=== PATIENT | male | born 1950 | race Caucasian/White ===

== ENCOUNTER → 2017-11-04 14:07 | Outpatient (CLI) | payer MEDICARE, SELFPAY ==
[2017-11-04 14:45] VITALS: PULSE 65; PULSE 70
== END ==
PROVIDERS: Family Provider Internal Medicine; PCP Internal Medicine Adolescent Medicine; Visit Provider Internal Medicine Adolescent Medicine
DX: R05 Cough (principal)
CPT/HCPCS: 94060; 94640; 94726; 94729

== ENCOUNTER → 2017-11-28 09:40 | Outpatient (CLI) | payer MEDICARE, SELFPAY ==
[2017-11-28 10:42] LABS: Basophils # 0.1 K/mm3 (0-0.2); Basophils % 1.2 % (0.1-2.0); Eosinophils # 0.1 K/mm3 (0.0-0.4); Hematocrit 47.2 % (42.0-52.0); Hemoglobin 15.1 g/dL (14.1-18.0); Lymphocytes # 2.3 K/mm3 (0.7-4.5); Lymphocytes % 33.3 K/mm3 (10-50); Mean Corpuscular Hemoglobin 32.4 pg (27.0-31.2); Mean Corpuscular Volume 101.4 fl (80-94); Mean Platelet Volume 7.3 fl (7.4-10.4); Monocytes # 0.3 K/mm3 (0.1-1.0); Monocytes % 4.9 % (1.7-9.3); Neutrophils # 4.2 K/mm3 (1.8-7.8); Neutrophils % 59.6 % (37.0-80.0); Platelet Count 283 K/mm3 (142-424); Red Blood Count 4.66 M/mm3 (4.60-6.20)
[2017-11-28 11:56] LABS: Alanine Aminotransferase 22 U/L (12-78); Albumin Level 3.8 gm/dL (3.4-5.0); Albumin/Globulin Ratio 1.2 (1.1-1.8); Alkaline Phosphatase 74 U/L (46-116); Anion Gap 12.6 mEq/L (5-15); Aspartate Amino Transferase 21 U/L (15-37); Bilirubin,Total 0.6 mg/dL (0.2-1.0); Blood Urea Nitrogen 15 mg/dL (7-18); Calcium 9.1 mg/dL (8.5-10.1); Carbon Dioxide 29 mmol/L (21.0-32.0); Chloride 102 mmol/L (98-107); Creatinine,Serum 1.14 mg/dL (0.70-1.30); Estimated Glomerular Filt Rate 64 ml/min (>60); GFR (African American) 77 ML/MIN (>60); Globulin 3.3 gm/dl (1.3-3.2); Glucose 93 mg/dL (74-106); Potassium 4.6 mmoL/L (3.5-5.1); Sodium 139 mmol/L (136-145); Total Protein,Serum 7.1 gm/dL (6.4-8.2)
[2017-11-29 15:19] LABS: Chol/HDL Ratio 4.1 (1-3.5); Cholesterol 226 mg/dL (140-200); HDL Cholesterol 55 mg/dL (27-67); LDL Cholesterol 157 mg/dL (0-130); Triglycerides 72 mg/dL (30-200); VLDL Cholesterol 14 mg/dL (0-40)
== END ==
PROVIDERS: PCP Internal Medicine Adolescent Medicine; Visit Provider Internal Medicine Adolescent Medicine
DX: Z00.00 Encounter for general adult medical examination without abnormal findings (principal); R06.02 Shortness of breath; J44.9 Chronic obstructive pulmonary disease, unspecified; R89.9 Unspecified abnormal finding in specimens from other organs, systems and tissues; C72.0 Malignant neoplasm of spinal cord; Z13.220 Encounter for screening for lipoid disorders; Z79.899 Other long term (current) drug therapy
CPT/HCPCS: 36415; 80053; 80061; 85025

== ENCOUNTER 2020-09-16 13:10 | Outpatient (CLI) | payer SELFPAY | END 2020-09-16 16:22 | disposition home or self-care (01) | PROVIDERS: Visit Provider Physician Assistant | DX: Z02.4 Encounter for examination for driving license (principal) ==

== ENCOUNTER 2022-01-21 14:25 | Emergency (ER) | payer MEDICARE, SELFPAY ==
--- NOTE | 2022-01-21 15:23 | XR_ITS ---
FINAL REPORT CLINICAL HISTORY: cough FINDINGS: 2 views of the chest were obtained . The heart is normal in size. The mediastinum is within normal limits. The lungs are hyperexpanded consistent with COPD. There is mild bronchial wall thickening worrisome for bronchitis. Mild right base opacities are seen which may represent atelectasis or pneumonia. There is no pneumothorax. Osseous structures are unremarkable. IMPRESSION: Mild bronchial wall thickening worrisome for bronchitis with right basilar atelectasis or pneumonia. Reviewed, Interpreted and Dictated by Skyler Perry III, MD Transcribed by Linda Damian Authenticated and [facility]
--- NOTE | 2022-01-21 15:33 | EXP.UTC ---
Discharge Plan Disposition Patient Disposition: Home, Self-Care Condition: Good Prescriptions Prescriptions: New azithromycin [Zithromax] 250 mg tablet 250 mg PO UD DOSE PK Qty: 6 0RF Rx Instructions: Take two (2) tablets today, then one (1) tablet days #2 thru #5 benzonatate [benzonatate] 100 mg capsule 100 mg PO TIDP PRN (Reason: Cough) Qty: 30 0RF methylprednisolone 4 mg Tablets,Dose Pack 4 mg PO DIRECTED Qty: 21 0RF No Action fluticasone propionate 120 SPR/BOT spray,suspension 2 spr intranasal DAILY Qty: 1 0RF Rx Instructions: each nostril Referrals Follow up/Referrals: Provider,Referral, MD [Primary Care Provider] - See instructions Activity Restrictions/Add. Instructions Additional Instructions/Restrictions: Drink plenty of fluids. Take tylenol or ibuprofen for pain or fever. Take the medications as directed. Follow up with your regular doctor. GO TO THE ER FOR ANY WORSENING SYMPTOMS Don't start the oral steroids until tomorrow, since you had the shot here today. Clinical Impressions Clinical Impression: COPD exacerbation Instructions Patient Instructions: DI for Chronic Obstructive Pulmonary Disease, Ceftriaxone Injection, Methylprednisolone Injection Discharge ED Provider: Marcos Bennett [facility] [place] General Stated complaint: cough,runny nose,chills Time Seen by Provider: 01/21/22 15:33 History of Present Illness Provider Complaint: He states that for the past 2 days he has had worsening chest and sinus congestion. He denies any fever/chills/body aches. His has similar symptoms at home. He has a history of COPD. Related Data Previous Rx's Medication Instructions Recorded fluticasone propionate 50 2 spr intranasal DAILY ##1 10/16/17 mcg/actuation nasal spray,suspension azithromycin 250 mg tablet 250 mg PO UD DOSE PK #6 tabs 01/21/22 (Zithromax) benzonatate 100 mg capsule 100 mg PO TIDP PRN Cough #30 caps 01/21/22 methylprednisolone 4 mg tablets in 4 mg PO DIRECTED #21 tabs 01/21/22 a dose pack Allergies Allergy/AdvReac Type Severity Reaction Status Date / Time No Known Allergies Allergy Verified 01/21/22 15:41 [facility] Disclaimer: The information contained in this section may have been updated after the patient was seen, as this information can be updated by other users. Social History Smoking Status: Current every day smoker tobacco type: cigarettes second hand exposure: Yes alcohol intake: never current occupational status: retired Travel in the last 8 weeks: None ROS Obtained: Yes All systems reviewed & no additional complaints except as documented Constitutional Constitutional: Reports as per HPI, Denies chills and Denies fever(s) Eyes Eyes: Denies eye discharge ENT Ears, Nose, Mouth, and Throat: Reports as per HPI Cardiovascular Cardiovascular: Denies chest pain Respiratory Respiratory: Denies chest congestion and Reports cough Gastrointestinal Gastrointestingal: Reports nausea; Denies abdominal pain, constipation, cramping, diarrhea or vomiting Musculoskeletal Musculoskeletal: Denies arthralgias Integumentary/Breasts Skin/Breast: Denies rash Neurologic Neurologic: Denies paresthesias Physical Exam General General appearance: alert and in no apparent distress Head Head exam: atraumatic, normocephalic and normal inspection Eye Eye exam: Present normal appearance, PERRL and EOMI ENT ENT exam: Present normal exam, normal oropharynx, mucous membranes moist, TM's normal bilaterally and normal external ear exam Neck Neck exam: Present normal inspection, full ROM and trachea midline; Absent meningismus or lymphadenopathy Chest Chest inspection: Present normal inspection and symmetric chest wall rise; Absent tenderness Respiratory Respiratory exam: Present normal lung sounds bilaterally; Absent respiratory distress Cardiovascular Cardiovascula
[2022-01-21 15:38] VITALS: BP 124/86; PULSE 92; RESP 16; TEMP 37; O2SAT 96; BMI 18.9
[2022-01-21 16:34] VITALS: BP 124/86; PULSE 92; RESP 16; TEMP 37
== END 2022-01-21 16:36 | disposition home or self-care (01) ==
PROVIDERS: Emergency Provider Nurse Practitioner Family
DX: J44.1 Chronic obstructive pulmonary disease with (acute) exacerbation (principal)
CPT/HCPCS: 71046; 96372; 99213; G0463; J0696

== ENCOUNTER 2022-06-10 13:28 | Emergency (ER) | payer MEDICARE, SELFPAY ==
[2022-06-10] VITALS (8 sets, daily range): BP systolic 115–149; BP diastolic 56–94; PULSE 69–94; RESP 18–20; TEMP 36.6–36.9; O2SAT 93–100; BMI 18.5
--- NOTE | 2022-06-10 13:41 | XR_ITS ---
FINAL REPORT CLINICAL HISTORY: soa FINDINGS: The heart size is normal. The mediastinum is within normal limits. The lungs are hyperinflated. There are mild chronic changes in both lungs. There is no pleural effusion. There is no pneumothorax. The bony thorax is intact. IMPRESSION: No acute cardiopulmonary process. Reviewed, Interpreted and Dictated by Santi Mayes MD Transcribed by Nam Phillips Authenticated and [facility]
--- NOTE | 2022-06-10 13:44 | HMH.EDGENADL ---
Discharge Plan Disposition Patient Disposition: Home, Self-Care Condition: Good Prescriptions Prescriptions: New prednisone 20 mg tablet 20 mg PO BID 7 Days Qty: 14 0RF doxycycline hyclate 100 mg capsule 100 mg PO BID 10 Days Qty: 20 0RF albuterol sulfate 90 mcg/actuation HFA aerosol inhaler 2 inh inhalation Q6H PRN (Reason: shortness of breath or wheezing) Qty: 8.5 0RF No Action fluticasone propionate 120 SPR/BOT spray,suspension 2 spr intranasal DAILY Qty: 1 0RF Rx Instructions: each nostril azithromycin [Zithromax] 250 mg tablet 250 mg PO UD DOSE PK Qty: 6 0RF Rx Instructions: Take two (2) tablets today, then one (1) tablet days #2 thru #5 benzonatate [benzonatate] 100 mg capsule 100 mg PO TIDP PRN (Reason: Cough) Qty: 30 0RF methylprednisolone 4 mg Tablets,Dose Pack 4 mg PO DIRECTED Qty: 21 0RF Referrals Follow up/Referrals: Provider,Referral, MD [Primary Care Provider] - See instructions Activity Restrictions/Add. Instructions Additional Instructions/Restrictions: Follow-up with a local primary care provider. Clinical Impressions Clinical Impression: COPD exacerbation, Bronchitis Discharge ED Provider: Narayan Arboleda General Adult HPI General Chief complaint: Upper Respiratory Infection Stated complaint: SOA Time Seen by Provider: 06/10/22 13:37 Mode of Arrival: Ambulatory Source of Information: Patient Limitations: No Limitations Description of Symptoms (Recalled from ER Triage Doc. by RN): pt to ed c/o sneezing, and shortness of air with exertion since . pt states he has a hx of copd. pt denies use of inhalers or o2 at home. History of Present Illness HPI narrative: Patient presents complaining of shortness of air and cough that began this past . He states cough has been productive of large amount of sputum he denies fever he denies chest pain he has had some left-sided back pain that is intermittent intermittent. He states the dyspnea is worse with exertion. He is a smoker and has been diagnosed with COPD and states he has not seen a doctor in approximate 30 years. Related Data Previous Rx's Medication Instructions Recorded fluticasone propionate 50 2 spr intranasal DAILY ##1 10/16/17 mcg/actuation nasal spray,suspension azithromycin 250 mg tablet 250 mg PO UD DOSE PK #6 tabs 01/21/22 (Zithromax) benzonatate 100 mg capsule 100 mg PO TIDP PRN Cough #30 caps 01/21/22 methylprednisolone 4 mg tablets in 4 mg PO DIRECTED #21 tabs 01/21/22 a dose pack albuterol sulfate 90 mcg/actuation 2 inh inhalation Q6H PRN shortness 06/10/22 aerosol inhaler of breath or wheezing #8.5 grams doxycycline hyclate 100 mg capsule 100 mg PO BID 10 days #20 caps 06/10/22 prednisone 20 mg tablet 20 mg PO BID 7 days #14 tabs 06/10/22 Allergies Allergy/AdvReac Type Severity Reaction Status Date / Time No Known Allergies Allergy Verified 01/21/22 15:41 [facility] Disclaimer: The information contained in this section may have been updated after the patient was seen, as this information can be updated by other users. Social History Smoking Status: Current every day smoker tobacco type: cigarettes second hand exposure: Yes alcohol intake: never current occupational status: retired Travel in the last 8 weeks: None ROS Obtained: Yes All systems reviewed & no additional complaints except as documented Physical Exam General General appearance: alert and in no apparent distress Head Head exam: atraumatic, normocephalic and normal inspection Eye Eye exam: Present normal appearance, PERRL and EOMI ENT ENT exam: Present normal exam, normal oropharynx, mucous membranes moist, TM's normal bilaterally and normal external ear exam Neck Neck exam: Present normal inspection, full ROM and trachea midline; Absent meningismus or lymphadenopathy Chest Chest inspection: Present normal insp
[2022-06-10 13:47] LABS: Coronavirus 19, PCR Not Detected (NotDetected); Influenza A, PCR Not Detected (NotDetected); Influenza B, PCR Not Detected (NotDetected)
--- NOTE | 2022-06-10 13:58 | ECG_ITS ---
APPROVED REPORT Exam: Resting ECG HR:73 bpm ECG Measurements Heart Rate 73 AXES MO 134 P 91 QRSd 93 QRS 82 QT 340 T 82 QTc 366 Conclusion SINUS RHYTHM WITH OCCASIONAL ECTOPIC PREMATURE COMPLEXES BORDERLINE ECG UNCONFIRMED REPORT Electronically signed by : Geo Combs MD 06/10/2022 20:12:11
[2022-06-10 14:23] LABS: Basophils % 0.1 % (0.1-2.0); Eosinophils # 0.2 K/mm3 (0.0-0.4); Eosinophils % 0.9 % (0.1-12.0); Hematocrit 45.9 % (42.0-52.0); Hemoglobin 14.9 g/dL (14.1-18.0); Lymphocytes # 1.7 K/mm3 (0.7-4.5); Mean Corpuscular HGB Conc 32.6 g/dL (31.8-35.4); Mean Corpuscular Hemoglobin 32.8 pg (27.0-31.2); Mean Corpuscular Volume 100.7 fl (80-94); Mean Platelet Volume 8.5 fl (7.4-10.4); Monocytes # 0.9 K/mm3 (0.1-1.0); Neutrophils # 12.8 K/mm3 (1.8-7.8); Platelet Count 270 K/mm3 (142-424); Red Blood Count 4.56 M/mm3 (4.60-6.20); Red Cell Distribution Width 12.9 % (11.5-17.5); White Blood Count 15.6 K/mm3 (4.8-10.8)
[2022-06-10 14:36] LABS: MANUAL DIFFERENTIAL MANUAL DIFFERENTIAL (MANUAL DIFF)
[2022-06-10 14:41] LABS: Chloride 96 mmol/L (98-107); Sodium 135 mmol/L (136-145)
[2022-06-10 14:42] LABS: Potassium 4.5 mmoL/L (3.5-5.1)
[2022-06-10 14:44] LABS: Alanine Aminotransferase 19 U/L (12-78); Alkaline Phosphatase 69 U/L (38-126); Anion Gap 15.5 mEq/L (5-15); Aspartate Amino Transferase 25 U/L (17-59); Bilirubin,Total 0.5 mg/dl (0.2-1.3); Blood Urea Nitrogen 19 mg/dl (9-20); Carbon Dioxide 28 mmol/L (22.0-30.0); Creatinine Clearance Estimated 57 mL/min (50-200); Estimated Glomerular Filt Rate 83 ml/min (>60); GFR (African American) 100 ML/MIN (>60)
[2022-06-10 14:45] LABS: Albumin Level 3.9 g/dl (3.5-5.0); Albumin/Globulin Ratio 1.2 (1.1-1.8); Globulin 3.2 g/dL (1.3-3.2); Glucose 103 mg/dl (74-100); Total Protein,Serum 7.1 g/dl (6.3-8.2)
[2022-06-10 14:57] LABS: Troponin I < 0.01 ng/ml (0.00-0.034)
[2022-06-10 15:16] LABS: Eosinophils % 1 % (0-3); Lymphocytes % 14 % (10-50); Macrocytosis 1+; Monocytes % 3 % (2-9); Neutrophils % 82 % (42-76); Nucleated Red Blood Cells 1; Total Cells Counted 100
[2022-06-10 15:17] LABS: Platelet Estimate Normal
--- NOTE | 2022-06-10 16:11 | CT_ITS ---
PROCEDURE INFORMATION: Exam: CTA Chest With Contrast Exam date and time: 06/10/2022 4:25 PM Age: 71 years old Clinical indication: Shortness of breath; Additional info: SOA TECHNIQUE: Imaging protocol: Computed tomographic angiography of the chest with contrast. 3D rendering (Not supervised by radiologist): MIP and/or 3D reconstructed images were created by the technologist. Radiation optimization: All CT scans at this facility use at least one of these dose optimization techniques: automated exposure control; mA and/or kV adjustment per patient size (includes targeted exams where dose is matched to clinical indication); or iterative reconstruction. Contrast material: ISOVUE; Contrast volume: 70 ml; Contrast route: INTRAVENOUS (IV); REPORTING DATA: Count of CT and Cardiac NM exams in prior 12 months: This patient has received 0 known CTs and 0 known cardiac nuclear medicine studies in the 12 months prior to the current study. COMPARISON: CR XR CHEST PORTABLE 06/10/2022 2:00 PM FINDINGS: Pulmonary arteries: No evidence of filling defects to suggest pulmonary emboli. Aorta: Aorta is nonaneurysmal. Lungs: Upper lobe predominant centrilobular emphysema noted. Bronchiectasis and mucous plugs with lower lobe gradient. Branching nodular opacities in lower lobes noted. Pleural spaces: No pneumothorax. No pleural effusion. Heart: The left atrial appendage is normal. Heart RV/LV ratio: The RV: LV ratio is less than 1. Coronary arteries: No significant coronary artery calcifications. Lymph nodes: Borderline prominent, multi station lymph nodes likely reactive. Liver: Hyperenhancing focus in the right hepatic lobe likely perfusional Adrenal glands: Left adrenal adenoma to 1.5 cm Bones/joints: Spinal cord is normal in signal characteristics. No acute osseous abnormality. Soft tissues: Unremarkable. IMPRESSION: 1. No pulmonary embolus 2. Findings favored to represent bronchiolitis with aspiration in the differential. Bronchiectasis and mucous plugs noted with lower lobe gradient. COMMENTS: In the absence of a history or active diagnosis of lung cancer, it is recommended that this patient with emphysema be evaluated for enrollment in a low dose CT lung cancer screening program.
--- NOTE | 2022-06-10 16:18 | PC.NURSE ---
PT TO RADIOLOGY
--- NOTE | 2022-06-10 16:30 | PC.NURSE ---
pt from radiology
[2022-06-10 17:07] LABS: Troponin I < 0.01 ng/ml (0.00-0.034)
--- NOTE | 2022-06-10 17:11 | PC.NURSE ---
Dr. Arboleda at to discuss test results and POC
== END 2022-06-10 17:24 | disposition home or self-care (01) ==
PROVIDERS: Emergency Provider Emergency Medicine
DX: J44.1 Chronic obstructive pulmonary disease with (acute) exacerbation (principal); J44.0 Chronic obstructive pulmonary disease with (acute) lower respiratory infection; F17.210 Nicotine dependence, cigarettes, uncomplicated
CPT/HCPCS: 36415; 71045; 71275; 80053; 84484; 85007; 85025; 85378; 93005; 96374; 99285; C9803; Q9967; U0003; U0005

== ENCOUNTER → 2022-08-09 11:14 | Outpatient (CLI) | payer SELFPAY | PROVIDERS: Visit Provider Physician Assistant | DX: Z02.4 Encounter for examination for driving license (principal) ==